=== PATIENT | female | born 1975 | race Caucasian/White ===

== ENCOUNTER 2024-04-16 01:17 | Emergency (ER) | payer SELFPAY ==
[~2024-04-16] VITALS: Ht 172.7 cm; Wt 77.1 kg
[2024-04-16] MEDS ORDERED: Amoxicillin/Clavulanate K 875 MG Tab PO ONE (02:55)
[2024-04-16] MEDS ORDERED: Ibuprofen 600 MG Tab PO ONE (02:55)
[2024-04-16] MEDS ORDERED: Acetaminophen 500 MG Tab PO ONE (02:55)
[2024-04-16] MEDS ORDERED: AMOCLA875 PO (02:58)
== END 2024-04-16 03:19 | disposition home or self-care (01) ==
LOC: ER 01:17
DX: H66.92 Otitis media, unspecified, left ear (principal)
CPT/HCPCS: 99282; A9270